=== PATIENT | male | born 1980 | race Caucasian/White ===

== ENCOUNTER 2017-03-14 18:16 | Emergency (ER) | payer BC ==
[~2017-03-14] VITALS: Ht 182.9 cm; Wt 136.1 kg
[2017-03-14] MEDS ORDERED: LISINOPRIL20 MG PO (18:31)
[2017-03-14] MEDS ORDERED: ALLEGRA ALLERG180 MG PO (18:31)
[2017-03-14] MEDS ORDERED: VENTOLIN HFA 1818 GM INH ×2 (18:31→19:09)
[2017-03-14] MEDS ORDERED: ALBUTEROL2.5 MG/31 INH (18:31)
[2017-03-14] MEDS ORDERED: PRILOSEC OTC20 MG PO (18:32)
[2017-03-14] MEDS ORDERED: ZPAK PO (19:09)
[2017-03-14] MEDS ORDERED: PREDNISONE 20 M20 MG PO (19:09)
[2017-03-14 19:17] VITALS: BP 152/101
== END 2017-03-14 19:17 | disposition home or self-care (01) ==
LOC: M.ERS 18:16
DX: B34.9 Viral infection, unspecified (principal); J45.909 Unspecified asthma, uncomplicated; H66.92 Otitis media, unspecified, left ear; I10 Essential (primary) hypertension; Z88.0 Allergy status to penicillin; Z88.2 Allergy status to sulfonamides

== ENCOUNTER 2017-07-27 04:14 | Inpatient (IN) | payer BC ==
[2017-07-27] VITALS (7 sets, daily range): BP systolic 120–169; BP diastolic 85–143
[~2017-07-27] VITALS: Ht 182.9 cm; Wt 149.7 kg
[~2017-07-27 04:14] MED LIST: ALBUTEROL2.5 MG/31 INH; ALLEGRA ALLERG180 MG PO; LISINOPRIL20 MG PO; PREDNISONE 20 M20 MG PO; PRILOSEC OTC20 MG PO; VENTOLIN HFA 1818 GM INH; ZPAK PO
[2017-07-27] MEDS ORDERED: PROAIR HFA8.5 GM INH (04:23)
[2017-07-27] MEDS ORDERED: ADVAIR HFA 230M12 GM INH (04:23)
[2017-07-27] MEDS ORDERED: SYMBICORT INH (04:24)
[2017-07-27 04:53] LABS: ABSOLUTE BASOPHILS 0.1 thou/uL (0.0-0.2); ABSOLUTE EOSINOPHILS 0.4 thou/uL (0.0-0.7); ABSOLUTE LYMPHOCYTES 4.1 thou/uL (0.8-5.3); ABSOLUTE MONOCYTES 0.7 thou/uL (0.0-1.2); ABSOLUTE NEUTROPHILS 5.8 thou/uL (1.6-8.1); BASOPHILS 1.3 %; EOSINOPHILS 3.4 %; HEMATOCRIT 44.8 % (42.0-52.0); HEMOGLOBIN 15.2 gm/dL (14.0-18.0); LYMPHOCYTES 36.9 %; MCH 31.4 pg (26.0-34.0); MCHC 33.9 g/dL (28.0-37.0); MCV 92.7 fL (80.0-100.0); MONOCYTES 6.6 %; MPV 8.6 fl. (7.2-11.1); NUCLEATED RBCS 0 /100WBC; PLATELET COUNT* 230 thou/uL (150-400); POLYS 51.8 %; RBC 4.83 mil/uL (4.50-6.00); RDW-CV 13.3 % (10.5-14.5); WBC 11.2 thou/uL (4.0-11.0)
[2017-07-27 05:00] LABS: ANION GAP 11 mmol/L (7-16); BUN 12 mg/dL (7-18); CALCIUM 8.6 mg/dL (8.5-10.1); CHLORIDE 105 mmol/L (98-107); CO2 25 mmol/L (21-32); GLUCOSE 135 mg/dL (70-99); POTASSIUM 3.7 mmol/L (3.5-5.1); SODIUM 141 mmol/L (136-145)
[2017-07-27 05:08] LABS: ALBUMIN 3.6 g/dL (3.4-5.0); ALKALINE PHOSPHATASE 104 U/L (46-116); SGOT 34 U/L (15-37); SGPT 47 U/L (30-65); TOTAL BILIRUBIN 0.2 mg/dL (<0.1-1.0); TOTAL PROTEIN 7.3 g/dL (6.4-8.2); TROPONIN-I LEVEL <0.06 ng/mL (<0.06)
[2017-07-27 05:10] LABS: APTT 26.6 Seconds (25.0-31.3); PROTIME 10.2 Seconds (9.20-11.50)
--- NOTE | 2017-07-27 09:00 | NUR ---
VSS, ASSUMED CARE OF PT FROM ER, ASSESSMENT PERFORMED AND CHARTED, FALL PRECAUTIONS IN PLACE AND CALL LIGHT IN REACH, PT IS A&O4 ON R5A AND IS TRACING SR ON THE MONITOR, PT IS COAUGHING UP BLOOD, AND IS UP AD KENZIE, PT DENIES ANY PAIN, HE IS SLEEPING AT THIS TIME.
--- NOTE | 2017-07-27 14:03 | EKG ---
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 Decorative: SALVATOREELADIA : 1980 Requested By: Yadira Rizo Order Number: [id number] MD: Eric Perez Measurements Intervals [place] Rate: 99 P: 25 NM: 144 QRS: 73 QRSD: 106 T: -15 QT: 336 QTc: 432 Interpretive Statements Sinus rhythm Borderline T abnormalities, inferior leads ST elev, probable normal early repol pattern No previous ECG available for comparison Electronically Signed On 07-27-2017 14:03:33 CDT by Eric Perez [email or web address] <ELECTRONICALLY SIGNED> By: Eric Perez MD, [facility] 07/27/17 1403 [id number] [id number] Eric Perez MD, [facility] /EPI
--- NOTE | 2017-07-27 18:36 | NUR ---
VSS, PT IS PROGRESSING TOWARDS GOAL, PT IS UP AD KENZIE AND IS ON 2L NC AT THIS TIME PRN, PT IS A&O4 AND IS TRACING SR ON THE MONITOR, PT HAS HAD NO MORE CAUGHING WITH BLOOD, HOURLY ROUNDS COMPLETED AND WILL FOLLOW WITH PLAN OF CARE.
[2017-07-27] MEDS ORDERED: AMLODIPINE BESY10 MG PO (21:28)
[2017-07-28 04:00] VITALS: BP 173/102
[2017-07-28 04:35] VITALS: BP 168/91
--- NOTE | 2017-07-28 04:56 | NUR ---
Pt up ad vikas, and awake overnight. 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 BP 160s-170s/90s-100s. Home BP meds resumed, and one dose hydralazine given this am. At 0400, pt had more hemoptysis--maureen blood which he coughed up into sink in room. Will continue to monitor.
[2017-07-28 05:33] LABS: HEMOGLOBIN 14.9 gm/dL (14.0-18.0); MCH 31.4 pg (26.0-34.0); MCHC 33.8 g/dL (28.0-37.0); MCV 92.8 fL (80.0-100.0); MPV 9.2 fl. (7.2-11.1); NUCLEATED RBCS 0 /100WBC; PLATELET COUNT* 239 thou/uL (150-400); RBC 4.75 mil/uL (4.50-6.00); RDW-CV 13.7 % (10.5-14.5); WBC 10.6 thou/uL (4.0-11.0)
[2017-07-28 06:11] LABS: ALBUMIN 3.4 g/dL (3.4-5.0); CALCIUM 9.4 mg/dL (8.5-10.1); CREATININE 1.1 mg/dL (0.6-1.3); POTASSIUM 4.1 mmol/L (3.5-5.1); TOTAL BILIRUBIN 0.3 mg/dL (<0.1-1.0)
[2017-07-28 08:00] VITALS: BP 153/65
[2017-07-28 08:49] LABS: ABSOLUTE LYMPHOCYTES 0.8 thou/uL (0.8-5.3); ABSOLUTE MONOCYTES 0.2 thou/uL (0.0-1.2); ABSOLUTE NEUTROPHILS 9.5 thou/uL (1.6-8.1); PLATELET ESTIMATE ADEQUATE
--- NOTE | 2017-07-28 13:27 | NUR ---
MET WITH PT TO DISCUSS HOME SITUATION/DC PLANNING. PT LIVES WITH AND CHILDREN. HE WORKS OUTSIDE THE HOME AND IS INDEPENDENT. HE USES NEBULIZER. DENIES DC NEEDS. WILL FOLLOW
--- NOTE | 2017-07-28 14:23 | CON ---
[address] [address] CONSULTATION Name: LUIS E SWIFT Room: [address] IN .R.#: [id number] Admission: 07/27/17 Attend Phys: Vinay Fabian MD Discharge: Date of : 82 Report #: [id number] THIS REPORT FOR: //name// CC: TYREE Fabian Physician staff DATE OF SERVICE: 07/27/2017 REASON FOR CONSULTATION: Hemoptysis. HISTORY OF PRESENT ILLNESS: This is a 37-year-old male patient with history of asthma and smoker, presented to the Emergency Room around 3:00 a.m. this morning when he coughed up some blood. 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 He reported 3 episodes prior to arrival and when I saw him today, he told me he thinks maybe he coughed up 5 times. It is fresh red blood and actually I see it on the collection cup at the bedside. No sputum. He denied any nasal bleeding except one episode when he had severe cough, he actually saw the cough coming through his nose. He does not think his breathing is worse than normal. He has history of hypertension and asthma. He is not short of breath. He had no lower extremity edema. No calf tenderness. No headache. No blurring of vision. He is just sleepy because he works audiology technician and is his sleep time. He denied any chest pain. He denied any similar episodes in the past. PAST MEDICAL HISTORY: Asthma, hypertension, history of spina bifida. HOME MEDICATIONS: He is on lisinopril, albuterol and Advair. ALLERGIES: PENICILLIN AND SULFA. FAMILY HISTORY: Reviewed with the patient, noncontributory. SOCIAL HISTORY: He smokes daily. Does not drink alcohol excessively. Does not abuse drugs. REVIEW OF SYSTEMS: He had no fever, no chills, no visual changes. He had no diarrhea, no vomiting. No bleeding from any orifice. No rash or bruising. Rest of review of systems was negative. PHYSICAL EXAMINATION: VITAL SIGNS: On examination, blood pressure 120/85, pulse rate of 96, breathing 20 times a minute. HEAD: Normocephalic, atraumatic. GENERAL: Obese gentleman. ORAL CAVITY: Mallampati of 3. NECK: Supple, thick. [place] [address] CONSULTATION Name: MARCELLE SWIFTTim Yeager Room: [address]#: [id number] Admission: 07/27/17 Attend Phys: Vinay Fabian MD Discharge: Date of : 82 Report #: [id number] EARS: External ear looks healthy and normal. CHEST: Diminished air movement bilaterally, prolonged expiratory phase. No definite wheezes. Some crackles at the right lung base. ABDOMEN: Obese, soft, lax, nontender. EXTREMITIES: Lower extremity: No edema, no calf tenderness, no rash. PSYCHIATRIC: Mood and affect calm and quiet. NEUROLOGIC: Moving 4 extremities spontaneously. No focal weakness. Cranial nerves grossly normal. LABORATORY DATA: His chest x-ray was unremarkable; however, the CT of the chest did not show PE, but showed some patchy infiltrates of the right lung base. His hemoglobin upon arrival is 15.2, this morning 14.8, platelets 230 and white blood count 11.2. His INR is 1. D-dimer 0.22. His creatinine is 1 with potassium of 3.7. IMPRESSION: 1. Hemoptysis. 2. Asthma. 3. Hypertension. PLAN: The patient's CTA of the chest showed some infiltrates in the right lung base, which could be the consequences of the blood or events with the pneumonia/bronchitis causing the hemoptysis. Would continue to monitor closely. The patient is maintaining his airways at this point. Bleeding is non-massive. He is not on any oxygen, has no respiratory symptoms; however, we will place the patient on IV steroids. Continue antibiotic, use scheduled nebulization treatment. I agree with the inhaled steroids. We will provide him with symptomatic cough management. Follow up chest x-ray in the morning. I am going to check his ANCA profile and LEONARDO profile. Repeat CBC in the morning and chest x-ray. Thank you for the consult. We will follow along with you. <ELECTRONICALLY SIGNED> By: Mihaela Fabian MD 07/28/17 1423 [id number] Aguilera MD /nt
--- NOTE | 2017-07-28 16:00 | NUR ---
VSS, ASSUEMD CARE OF PT IN THE AM, ASSESSMENT PERFORMED AND CHARTED, FALL PRECAUTION IN PLACE AND CALL LIGHT IN REACH, PT IS UP AD KENZIE, TRACING SR/ST ON THE MONITOR, ON RA AND DENIES ANY PAIN AT THIS TIME, PT IS A&O4 AND HIS GOAL IS TO NOT HAVE ANY BLOODIE CAOUGHING SPELLS. AT THIS TIME PT HAS MET GOAL WITH NO BLOOD COUGHING AND HE HAS BE MADE MS STATUS, WALKS THE UNIT AND IS ON RA, HOURLY ROUNDS COMPLETED.
[2017-07-28 19:50] VITALS: BP 159/102
[2017-07-29] VITALS: BP 139/85
[2017-07-29 04:00] VITALS: BP 129/44
--- NOTE | 2017-07-29 05:36 | NUR ---
A&O X4 CALM COOPERITVE. ADLIB. RA. PT HAD X1 INCIDENT OF COUGHING WITH BLOOD IN SPUTUM. PT GIVEN MEDICATION WITH RELIEF NOTED. NPO SINCE MIDNIGHT FOR PROCEDURE TODAY. VITALS WNL. SEE MAR. SEE CHARTING. PT MEDSURG STATUS. HOURLY ROUNDING FOR SAFETY.
[2017-07-29 08:00] VITALS: BP 182/104
[2017-07-29] MEDS ORDERED: CIPRO500 MG PO (10:24)
[2017-07-29] MEDS ORDERED: PREDNISONE 20 M20 MG PO (10:31)
[2017-07-29 11:09] LABS: ANA INTERPRETATION Negative (Negative)
[2017-07-29 16:25] VITALS: BP 182/104
--- NOTE | 2017-07-29 17:09 | NUR ---
PT DISCHARGED HOME WITH SPOUSE NO COMPLAINTS OR CONCERNS AT THIS TIME PLAN TO FOLLOW UP WITH AN ENT SOON POSSIBLE PULM OKAY WITH PT LEAVING IV'S DC'D PT WALKED OUT OF FACILITY WITHOUT ISSUES
--- NOTE | 2017-07-30 09:28 | OP ---
[address] [address] OPERATIVE REPORT Name: LUIS E SWIFT Room: [address] IN .R.#: [id number] Admission: 07/27/17 Attend Phys: Vinay Fabian MD Discharge: 07/29/17 Date of : 82 Report #: [id number] THIS REPORT FOR: //name// CC: TYREE Fabian Physician staff DATE OF SERVICE: 07/29/2017 TYPE OF PROCEDURE: Bronchoscopy. INDICATION: Hemoptysis. DESCRIPTION OF PROCEDURE: Timeout was called. The patient was in the bronchoscopy suite. He was initially given 1 mg of Versed and 25 mcg fentanyl throughout the procedure. He required multiple dosing of sedation. He received a total of 7 mg of Versed and 150 mcg of fentanyl. The bronchoscope was used and as I advanced the bronchoscope, 2% lidocaine was used to anesthetize the airways. Initially, I inspected the left nostril, which was really tight. There was an area in the left nostril that was suggestive of recent bleeding, although it was not actively bleeding during my evaluation. I could not pass the bronchoscope beyond that. The left nostril was really tight. After that, the right nostril was used to introduce the bronchoscope. No evidence of bleeding from the right nose down to the airways. It was noted the patient had no bleeding or pooling of blood in the back of his throat. The vocal cord looked healthy and normal. After that trachea was inspected. Some old blood in the posterior wall of the trachea that was suctioned easily. The left lung was bronchoscoped and inspected down to the segmental bronchi. No evidence of bleeding. After that, the right lung was inspected. Right upper lobe and right middle lobe, no evidence of bleeding. Right lower lobe, very small old clot that was suctioned easily that was at the bifurcation of the tertiary nuria. Saline was pushed down to the right lower lobe obstruction back. No evidence of bleeding or discoloration of the saline. After that, the bronchoscope was pulled back. IMPRESSION: the source of hemoptysis is epistaxis with postnasal drainage. <ELECTRONICALLY SIGNED> By: Clari Aguilera MD 07/30/17 0928 1204 [id number] Aguilera MD /nt
== END 2017-07-29 17:00 | disposition home or self-care (01) | DRG 194 ==
LOC: M.ERS 04:14 → M.TBA-ER 06:02 → M.2W 06:02
PROVIDERS: Internal Medicine; Personal Emergency Response Attendant; ADMIT Internal Medicine
PROC: 0BJ08ZZ Inspection of Tracheobronchial Tree, Via Natural or Artificial Opening Endoscopic (ICD-10-PCS; principal; 2017-07-29)
DX: J18.9 Pneumonia, unspecified organism (principal); Z68.41 Body mass index [BMI] 40.0-44.9, adult; R04.2 Hemoptysis; J45.909 Unspecified asthma, uncomplicated; R04.0 Epistaxis; I10 Essential (primary) hypertension; E66.9 Obesity, unspecified; F17.210 Nicotine dependence, cigarettes, uncomplicated; Z88.2 Allergy status to sulfonamides; Z88.0 Allergy status to penicillin

== ENCOUNTER 2021-02-05 12:30 | Emergency (ER) | payer BC ==
[~2021-02-05] VITALS: Ht 182.9 cm; Wt 163.3 kg
[~2021-02-05 12:30] MED LIST changes: +ADVAIR HFA 230M12 GM INH; +AMLODIPINE BESY10 MG PO; +CIPRO500 MG PO; +PROAIR HFA8.5 GM INH; +SYMBICORT INH
[2021-02-05] MEDS ORDERED: PROAIR HFA8.5 GM INH (13:59)
[2021-02-05 14:09] VITALS: BP 172/110
== END 2021-02-05 14:12 | disposition home or self-care (01) ==
LOC: M.ERS 12:30
DX: R04.0 Epistaxis (principal); I10 Essential (primary) hypertension; F17.200 Nicotine dependence, unspecified, uncomplicated; J45.909 Unspecified asthma, uncomplicated; Z88.0 Allergy status to penicillin; Z88.1 Allergy status to other antibiotic agents; Z79.899 Other long term (current) drug therapy